=== PATIENT | male | born 1965 | race Caucasian/White ===

== ENCOUNTER → 2019-08-20 | Outpatient (CLI) | payer OTHER ==
--- NOTE | 2019-08-20 12:03 | RADIOLOGY REPORT (SQ) ---
EXAM DESCRIPTION: U/S ABDOMEN LIMITED W/O DOP COMPLETED DATE/TIME: 08/20/2019 9:06 am REASON FOR STUDY: R10.13 EPIGASTRIC PAIN R10.13 EPIGASTRIC PAIN COMPARISON: None. TECHNIQUE: Dynamic and static grayscale images acquired of the abdomen and recorded on PACS. Additio nal selected color Doppler and spectral images recorded. LIMITATIONS: None. FINDINGS: PANCREAS: Midline pancreas unremarkable LIVER: Echogenic liver from diffuse hepatocellular disease or fatty infiltration. No focal masses or biliary ductal dilatation. No hepatomegaly LIVER VASCULATURE: Normal directional flow of the main portal vein and hepatic veins. GALLBLADDER: Multiple shadowing stones are present. No gallbladder wall thickening or pericholecysti c fluid. Small amount of sludge in the gallbladder fundus ULTRASOUND-DETECTED MAGUIRE'S SIGN: Negative. INTRAHEPATIC DUCTS AND COMMON DUCT: No intrahepatic biliary ductal dilatation. Common duct at the po rta hepatis 4 mm diameter. Distal most common duct not well seen. INFERIOR VENA CAVA: Normal flow. AORTA: No aneurysm. RIGHT KIDNEY: Normal size. Normal echogenicity. No solid or suspicious masses. No hydronephrosis. No calcifications. PERITONEAL AND RIGHT PLEURAL SPACE: No ascites or effusions. OTHER: No other significant findings. IMPRESSION: Stones in the gallbladder without gallbladder wall thickening or pericholecystic fluid. Echogenic liver, suspect fatty infiltration TECHNICAL DOCUMENTATION: JOB ID: [id number] [employer]- All Rights Reserved Reading location - IP/workstation name: [email or web address]
== END ==
LOC: WI 08:14
PROVIDERS: ATTEND Internal Medicine Gastroenterology
DX: K80.20 Calculus of gallbladder without cholecystitis without obstruction (principal); R10.13 Epigastric pain
CPT/HCPCS: 76705